=== PATIENT | female | born 1940 | race Caucasian/White ===

== ENCOUNTER 2016-09-01 08:53 | Inpatient (IN) | payer MEDICARE ==
[~2016-09-01] VITALS: Ht 144.7 cm; Wt 57.0 kg
[2016-09-01] VITALS (7 sets, daily range): BP systolic 120–143; BP diastolic 68–89
--- NOTE | ~2016-09-01 | PR ---
[place], [place] PROGRESS NOTE NAME: RACHANA MENON [facility] #: [id number] UNIT #: [id number] ROOM: 507 DOCTOR: LORI COX MD,JASPER BIRTHDATE: [birth year] DOS: 09/03/2016 PULMONARY PROGRESS NOTE SUBJECTIVE: The patient was seen and examined. Pulmonary followup note as well as covering for Dr. Shaye Guillen. The patient was seen and examined on 08/26/2016. She has been noted comfortable at this time with reduction of symptoms of shortness of breath, cough and wheezing was described. She was noted with some loose bowel motion for this patient in the last 12 hours. There was no abdominal pain. There was no hematemesis or melena. OBJECTIVE: VITAL SIGNS: Showed normal temperature, respiratory rate of 18, heart rate of 93, blood pressure 123/86. The pulse oxygen saturation on room air was 96% saturation recorded. HEENT: Examination shows no new change. NECK: Supple. CARDIOVASCULAR SYSTEM: S1, S2 audible. LUNGS: The patient was noted mild to moderate expiratory wheezing, decreased from previous examination. ABDOMEN: Soft, nontender. IMPRESSION: 1. Acute exacerbation of chronic obstructive pulmonary disease with acute tracheobronchitis for the patient noted. 2. Anxiety disorder. 3. Diarrhea of the patient unknown significance. PLAN OF TREATMENT: Reduce Solu-Medrol b.i.d. dosing. Stool for C. diff toxin has been ordered. Continuation of the previous other treatment plan of management. Usual care, other supportive therapy, plan of care. JASPER SANDOVAL MD CM:PNTRANS [phone] JASPER COX MD 09/04/16 0407 interface
--- NOTE | ~2016-09-01 | PR ---
[place], [place] PROGRESS NOTE NAME: [facility] #: [id number] UNIT #: [id number] ROOM: 507 DOCTOR: LORI COX MD,JASPER BIRTHDATE: [birth year] DOS: 09/04/2016 PULMONARY PROGRESS NOTE SUBJECTIVE: She has been noted with reduction in symptoms of shortness of breath, coughing, wheezing in the last 24 hours. Denies any symptoms of chest pain or any abdominal pain. The diarrhea of the patient has been better. OBJECTIVE: VITAL SIGNS: Normal temperature, respiratory rate 20, heart rate 84, blood pressure 146/70. Pulse oxygen saturation on room air 97% saturation. HEENT: Shows no new changes. NECK: Supple. CARDIOVASCULAR: S1, S2 audible. LUNGS: Mild expiratory wheezing, no crackles. ABDOMEN: Soft, nontender. LABORATORY DATA: The patient's sputum culture from the showed normal duglas on preliminary, final culture results are pending. Stool for C. diff toxin noted as negative. IMPRESSION: 1. The patient with resolving acute exacerbation of chronic obstructive pulmonary disease with acute tracheobronchitis progressively. 2. Diarrhea of the patient related to the food or medications administration without any evidence of Clostridium difficile. PLAN OF TREATMENT: Continue the current plan of management for this patient with corticosteroids, bronchodilators, and oxygen supplementation. The dose of Solu-Medrol for the patient been made to b.i.d. yesterday and will be made daily dosing from today. JASPER SANDOVAL MD CM:PNTRANS [phone] JASPER COX MD 09/05/16 0404 interface
--- NOTE | ~2016-09-01 | WRIGHTHP ---
[place], [place] PATIENT HISTORY AND PHYSICAL EXAM NAME: RACHANA MENON LOCATED WITHIN [facility] #: [id number] UNIT #: [id number] ROOM: 507 DOCTOR: BRITTANI MONTELONGO MD BIRTHDATE: [birth year] DOS: 09/02/2016 HISTORY OF PRESENT ILLNESS: The patient is 75 years old. The patient comes in with complaints of difficulty breathing. The patient has been sick for the last 3 weeks with increasing cough, shortness of breath and sputum production. She did not have any fever or chills. She has increasing shortness of breath, but no chest pains or palpitations, so she finally arrived to the emergency room and she was admitted with exacerbation of COPD. Chest x-ray was unremarkable. After admission, she continues to have a cough and continues to be in mild respiratory distress. PAST MEDICAL HISTORY: Significant for: 1. Last hospitalization in 02/2016, with acute exacerbation of COPD. 2. Benign pulmonary nodules. 3. Steroid-induced hyperglycemia. 4. History of nicotine abuse. 5. Generalized anxiety disorder. MEDICATIONS: That she is on are Symbicort 160 two puffs twice daily, Xanax 0.25 daily, vitamin D 2000 units daily, montelukast 10 daily, Protonix 40 daily, Spiriva 1 puff at bedtime and breathing treatments. SOCIAL HISTORY: Nonsmoker, does not use any alcohol. She lives at home with her son. PHYSICAL EXAMINATION: VITAL SIGNS: Graphic trend shows a blood pressure of 143/72, pulse of 98, respirations 20, temperature 98.0. LUNGS: Diminished breath sounds, very poor air entry. HEART: Regular. ABDOMEN: Soft. EXTREMITIES: Without any edema. LABORATORY DATA: WBC count is normal at 8.4, hemoglobin 13.9, hematocrit 44.3. Comprehensive, glucose 118, BUN 14, creatinine 0.73. Electrolytes were normal. Chest x-ray shows no pathology. ASSESSMENT AND PLAN: 1. The patient who presents with increasing shortness of breath and cough, has underlying acute tracheobronchitis. IV Rocephin has been ordered. Chest x-ray is unremarkable. 2. Acute exacerbation of COPD with acute respiratory distress syndrome. The patient is on IV steroids and breathing treatments. Maximize the bronchodilator regimen. Also add Hycodan for chronic cough. Dr. Quinteros also has been consulted. [place], [place] PATIENT HISTORY AND PHYSICAL EXAM NAME: RACHANA MENON UNIT #: [id number] ROOM: 507 DOCTOR: BRITTANI MONTELONGO MD BIRTHDATE: [birth year] BRITTANI MONTELONGO MD CM:HISPHYS:PATIENT HISTORY AND PHYSICAL EXAMINATION [phone] BRITTANI MONTELONGO MD 09/02/16 0855 interface
--- NOTE | ~2016-09-01 | CON ---
[place], [place] REPORT OF CONSULTATION NAME: RACHANA MENON [facility] #: [id number] UNIT #: [id number] ROOM: 507 DOCTOR: LORI COX MDJASPER BIRTHDATE: [birth year] DOS: 09/02/2016 PULMONARY CONSULTATION CONSULTATION REQUESTED BY: Dr. Shaye Guillen. REASON FOR CONSULTATION: Assess the patient for ongoing acute respiratory complaints. HISTORY OF PRESENT ILLNESS: A 75-year-old white female with past history of bronchial asthma, presented to the hospital. The patient has been noted getting increasingly ill with cough and shortness of breath. The symptoms for the patient has been started 3 weeks ago noted with gradual worsening. Coughing has been moderate to severe for the patient with only small amount of sputum expectoration recently was noted currently at rest, initially started for the patient with exertion. She denies symptoms of pain in the chest. She does complain of symptoms of tightness in the chest. The patient has been currently admitted to the hospital for further medical management of exacerbation of bronchial asthma/COPD. REVIEW OF SYSTEMS: CONSTITUTIONAL SYMPTOMS: She does complain of fatigue and tiredness. Denies symptoms of fever or chills. EYES: Denies any burning, redness, or tenderness. EARS, NOSE, THROAT SYMPTOMS: No sore throat, hoarseness, otalgia, or postnasal drainage. CARDIOVASCULAR SYSTEM: Denies anginal pain, edema of the lower extremities or palpitations. GASTROINTESTINAL SYMPTOMS: Denies any dysphagia, nausea, vomiting, diarrhea, abdominal pain, hematemesis, melena, or hematochezia. SKIN: Denies any lesions or rashes. CENTRAL NERVOUS SYSTEM: Denies dizziness, headache, diplopia or syncopal episodes. MUSCULOSKELETAL SYMPTOMS: There was no joint pain, redness, or tenderness. Remaining systems were reviewed with the patient, they were noted all negative. PAST MEDICAL HISTORY: Known as, 1. Centrilobular emphysema. 2. Bronchial asthma of the patient, severity unknown. 3. Past nicotine abuse. 4. History of gastroesophageal reflux. 5. Generalized anxiety disorder. SOCIAL HISTORY: The patient has been noted with tobacco use since teenager, pack of cigarettes per day that was discontinued in 2010. She is and has 4 children. Denies history of occupation related pulmonary exposure. Denies history of illicit drug use or any alcohol use. PAST SURGICAL HISTORY: Essentially noted none. [place], [place] REPORT OF CONSULTATION NAME: RACHANA MENON UNIT #: [id number] ROOM: 507 DOCTOR: LOIR COX MD,JASPER BIRTHDATE: [birth year] FAMILY HISTORY: Noted noncontributory. CURRENT MEDICATIONS: Administered noted as use of Protonix, Dulera, Singulair, DuoNeb, IV Solu-Medrol, Rocephin, and Xanax. ALLERGIES: Drug allergy history for the patient was noted as Z-LILLIAN. PHYSICAL EXAMINATION: GENERAL: A 75-year-old white female, currently noted to be awake and alert without any distress at the present time of assessment. The patient's height was recorded as 4 feet 9 inches, weight of 57 kg, BMI 27.2. VITAL SIGNS: Shows a normal temperature, respiratory recorded as 16-20, heart rate of 88. The blood pressure noted 131/69-142/72. Intake for the patient 910, output 300 mL. Pulse oxygen saturation on 3 L nasal cannula 99% saturation recorded. HEENT: Examination shows head was atraumatic. Eyes nonicterus. NECK: Supple, age-related changes. CARDIOVASCULAR SYSTEM: S1, S2 audible. LUNGS: Diffuse expiratory wheezing were noted in the lungs bilaterally. ABDOMEN: Flat, soft, nontender. EXTREMITIES: Show no edema, clubbing, or cyanosis. CENTRAL NERVOUS SYSTEM: Cranial nerves 2-12 intact. No focal deficits. MUSCULOSKELETAL SYMPTOMS: No deformities. SKIN: Showed no lesions or rashes. LABORATORY DATA: CBC of the patient on 09/01 shows hemoglobin 13.9, hematocrit 44.3, WBC count was normal, platelet count was normal. PT/PTT for the patient was noted as normal. CMP of the patient of 09/01, glucose 118, BUN and creatinine was normal. Remaining electrolytes were normal. LFTs were normal. Two-view chest x-ray for the patient that was done yesterday for the patient at the time of the admission, the patient was noted with hyperinflation of the lungs without any acute pulmonary infiltration. IMPRESSION: 1. The patient with gradual worsening of the symptoms for the patient as a result of acute exacerbation of chronic obstructive pulmonary disease and bronchial asthma for the patient with the acute bacterial bronchitis suspected. 2. The patient with past history of nicotine dependence. 3. Generalized anxiety disorder and history of gastroesophageal reflux, which were noted currently well controlled. PLAN OF TREATMENT: The patient has been getting corticosteroids 20 mg t.i.d. The dose will be changed for the patient 40 mg every 8 hours for more effective dose. Continuation of the bronchodilators and oxygen supplementation. Mucinex will be added to the treatment. Flutter valve for the patient also started as well. Further treatment changes will be done based on the progression of the illness. Collect the sputum for Gram stain and culture as well. No change in antibiotic, currently administered as Rocephin. Addition of antibiotic will be added as doxycycline for atypical organism coverage for bronchitis. [place], [place] REPORT OF CONSULTATION NAME: RACHANA MENON UNIT #: [id number] ROOM: [facility] DOCTOR: JASPER GARZA MD BIRTHDATE: [birth year] JASPER SANDOVAL MD CM:CONSTR:REPORT OF CONSULTATION 1017 09/03/16 0315 interface
--- NOTE | ~2016-09-01 | EKG ---
[place], [place] ELECTROCARDIOGRAM REPORT NAME: RACHANA MENON UNIT #: [id number] ROOM: 507 DOCTOR: RIKKI YOUNG MD BIRTHDATE: [birth year] DOS: 09/01/2016 TIME: 935 FINDINGS: Sinus tachycardia at rate of 116, otherwise normal electrocardiogram. RIKKI YOUNG MD CM:EKGRPT:ELECTROCARDIOGRAM REPORT [id number] RIKKI YOUNG MD
--- NOTE | ~2016-09-01 | PR ---
[place], [place] PROGRESS NOTE NAME: RACHANA MENON [facility] #: [id number] UNIT #: [id number] ROOM: 507 DOCTOR: BRITTANI MONTELONGO MD BIRTHDATE: [birth year] DOS: 09/04/2016 SUBJECTIVE: The patient is starting to feel better, does not have any complaints. Appreciate Dr. Quinteros's input. OBJECTIVE: VITAL SIGNS: Pressure is 119/59, pulse of 92, respirations 20, temperature 98.1. LUNGS: Diminished breath sounds, much clearer than when she was admitted. HEART: Regular. ABDOMEN: Obese, soft. EXTREMITIES: Without any edema. LABORATORY DATA: culture preliminary is normal duglas. C. diff toxin was negative. ASSESSMENT AND PLAN: 1. Acute exacerbation of chronic obstructive pulmonary disease. The patient is improving on the current treatment plan. 2. Acute tracheobronchitis. The cough has improved. The cultures are negative. 3. Generalized anxiety disorder on medications. The plan is to discharge her to home tomorrow. BRITTANI MONTELONGO MD CM:PNTRANS [phone] BRITTANI MONTELONGO MD 09/05/16 0038 interface
--- NOTE | ~2016-09-01 | PR ---
[place], [place] PROGRESS NOTE NAME: RACHANA MENON [facility] #: [id number] UNIT #: [id number] ROOM: 507 DOCTOR: BRITTANI MONTELONGO MD BIRTHDATE: [birth year] DOS: 09/05/2016 SUBJECTIVE: The patient is doing fine without any complaints today. OBJECTIVE: VITAL SIGNS: Graphic trend shows a pressure 128/69, pulse of 83, respirations 20, temperature 98.2. LUNGS: Diminished breath sounds, clear. HEART: Regular. ABDOMEN: Soft. EXTREMITIES: Without any edema. ASSESSMENT AND PLAN: 1. Acute exacerbation of chronic obstructive pulmonary disease, improving, bronchospasm has resolved. 2. Acute tracheobronchitis with negative sputum cultures. The patient is stable and can be discharged to home today. BRITTANI MONTELONGO MD CM:PNTRANS [phone] BRITTANI MONTELONGO MD 09/05/161924 interface
--- NOTE | ~2016-09-01 | DS ---
[place], [place] DISCHARGE SUMMARY NAME: RACHANA MENON [facility] #: [id number] UNIT #: [id number] ROOM: 507 DOCTOR: BRITTANI MONTELONGO MD BIRTHDATE: [birth year] DOS: 09/05/2016 DIAGNOSES: 1. Acute exacerbation of chronic obstructive pulmonary disease. 2. Acute tracheobronchitis. 3. Generalized anxiety disorder. 4. History of chronic asthma. 5. Benign pulmonary nodules. HOSPITAL COURSE: This patient is very well known to us, comes in with complaints of difficulty breathing, cough for about 3 weeks' duration. After admission, the patient was placed IV steroids and antibiotics and maximized the bronchodilators and she has slowly improved. Dr. Quinteros was consulted who agreed on the treatment plan. Chest x-ray was unremarkable. Her cough is mostly nonproductive and dry, so Hycodan was given. The patient is stable and improved and is no longer having any more bronchospasm, so the plan is to discharge her to home today. Follow up as an outpatient. BRITTANI MONTELONGO MD CM:DISCHLONNIE [phone] BRITTANI MONTELONGO MD 09/05/16 1505 interface
[~2016-09-01 08:53] MED LIST: ALBUTEROL SULF0.5 M1 NEB; ALBUTEROL2.5 MG/0.5 INH; CIPRO500 MG PO; CLARITIN10 MG PO; CORDROL20 MG PO; DELTASONE20 MG PO; DELTASONE5 MG; DELTASONE5 MG PO; DOXYCYCLINE100 M3 PO; DULE1ARO1 INH; DUONEB 3 MG/3 ML3 M1 INH; HYCODAN 1.5 MG480 M1 PO; NEXIUM40 MG PO; PERCOCET 325 MG1 TA6 PO; PREDNICOT20 MG PO; PREDNISONE20 MG PO; PREDNISONE5 MG PO; PRILOSEC20 MG PO; PULMICORT RESP0.5 MG INH; SINGULAIR10 MG PO; SPIRIVA -- 3018 MCG; SYMBICORT1 AE1 INH; SYMBICORT1 AER IH; VIBRAMYCIN100 MG PO; VICODIN 5/500 505 MG PO; VICODIN 500 MG-1 TAB PO; VITAMIN B1100 MCG/ML IM; VITAMIN D32000 I1 PO; VITAMIN D50000 I2 PO; XANAX0.25 MG PO; ZAFIRLUKAST20 M2 PO; ZITHROMAX250 MG PO; ZOVIRAX800 MG PO
[2016-09-01] MEDS ORDERED: ALBUTEROL2.5 MG/0.5 INH (09:04)
[2016-09-01] MEDS ORDERED: MONTELUKAST SOD10 MG PO (09:05)
[2016-09-01] MEDS ORDERED: VITAMIN D-32000 UNI1 PO (09:05)
[2016-09-01] MEDS ORDERED: XANAX0.25 MG PO (09:06)
[2016-09-01] MEDS ORDERED: PROTONIX40 MG PO (09:07)
[2016-09-01 09:39] LABS: BASO # 0.1 10*3/uL (0.0-0.1); BASO % 1.1 % (0.0-1.0); EOS # 0.3 10*3/uL (0.0-0.4); EOS % 3.7 % (1.0-4.0); HEMATOCRIT 44.3 % (37.0-47.0); HEMOGLOBIN 13.9 g/dl (12.0-16.0); LYMPH # 1.7 10*3/uL (1.3-4.4); LYMPH % 20.5 % (27.0-41.0); MEAN CELL VOLUME 79.7 fl (81.0-99.0); MEAN CORPUSCULAR HGB CONC 31.4 g/dl (33.0-37.0); MEAN PLATELET VOLUME 9.5 fl (9.6-12.3); MONO # 0.8 10*3/uL (0.1-1.0); MONO % 9.4 % (3.0-9.0); NEUT # 5.5 10*3/uL (2.3-7.9); NEUT % 64.9 % (47.0-73.0); PLATELET COUNT AUTOMATED 348 10*3/uL (130-400); RED BLOOD COUNT 5.56 10*6/uL (4.10-5.10); RED CELL DISTRI WIDTH 16.2 % (0-14.5); WHITE BLOOD COUNT 8.4 10*3/uL (4.8-10.8)
[2016-09-01 10:02] LABS: INTERNATIONAL NORM RATIO 0.9 (2.0-3.5); PROTHROMBIN TIME 9.9 SECONDS (9.0-12.4)
[2016-09-01 10:09] LABS: ALBUMIN 3.9 gm/dl (3.1-4.5); ALKALINE PHOSPHATASE 65 U/L (45-117); BILIRUBIN, TOTAL 0.3 mg/dl (0.2-1.0); BUN 14 mg/dl (7-24); CARBON DIOXIDE 27 mmol/L (21-32); CHLORIDE 108 mmol/L (98-107); CKMB 2.3 ng/ml (0.5-3.6); CPK 66 U/L (26-192); EST GLOM FILT AFRICAN AMERICAN > 60 ml/min; GLUCOSE 118 mg/dL (65-99); MAGNESIUM 2.2 mg/dL (1.5-2.1); SGOT/AST 16 IU/L (3-35); SGPT/ALT 19 U/L (12-78); SODIUM 142 mmol/L (136-145); TOTAL PROTEIN 7.1 gm/dL (6.4-8.2)
[2016-09-01 10:13] LABS: C-REACTIVE PROTEIN < 0.29 MG/DL (0-0.3); TROPONIN I < 0.015 ng/ml (<0.045)
[2016-09-02] VITALS: BP 143/72
[2016-09-02 08:00] VITALS: BP 131/69
[2016-09-02 12:00] VITALS: BP 130/69
[2016-09-02 16:00] VITALS: BP 157/70
[2016-09-02 20:00] VITALS: BP 137/79
[2016-09-03] VITALS: BP 127/62
[2016-09-03 08:00] VITALS: BP 123/86
[2016-09-03 12:00] VITALS: BP 140/89
[2016-09-03 16:00] VITALS: BP 125/52
[2016-09-03 20:00] VITALS: BP 154/68
[2016-09-04] VITALS: BP 119/59
[2016-09-04 08:00] VITALS: BP 118/72
[2016-09-04 12:00] VITALS: BP 146/70
[2016-09-04 16:00] VITALS: BP 137/70
[2016-09-04 20:00] VITALS: BP 137/70
[2016-09-05] VITALS: BP 128/69
[2016-09-05] MEDS ORDERED: DOXYCYCLINE MO100 M1 PO (06:52)
[2016-09-05] MEDS ORDERED: HYCODAN/HYDROMET5 ML PO (06:52)
[2016-09-05] MEDS ORDERED: SYMBICORT1 AE1 INH (06:52)
[2016-09-05] MEDS ORDERED: PREDNISONE5 MG PO ×2 (06:53→06:55)
[2016-09-05 08:00] VITALS: BP 148/72
== END 2016-09-05 09:07 | disposition home or self-care (01) | DRG 191 ==
LOC: ED 08:53 → 5E 11:08 → EDHOLD 11:08 → 5E 12:13
PROVIDERS: Registered Nurse
DX: J44.0 Chronic obstructive pulmonary disease with (acute) lower respiratory infection (principal); J80 Acute respiratory distress syndrome; J44.1 Chronic obstructive pulmonary disease with (acute) exacerbation; J20.9 Acute bronchitis, unspecified; R91.1 Solitary pulmonary nodule; F41.1 Generalized anxiety disorder; R19.7 Diarrhea, unspecified; K21.9 Gastro-esophageal reflux disease without esophagitis; Z87.891 Personal history of nicotine dependence; Z98.51 Tubal ligation status

== ENCOUNTER 2018-05-04 06:01 | Inpatient (IN) | payer MEDICARE ==
[~2018-05-04] VITALS: Ht 144.7 cm; Wt 59.0 kg
--- NOTE | ~2018-05-04 | EKG ---
[place], [place] ELECTROCARDIOGRAM REPORT NAME: RACHANA MENON UNIT #: [id number] ROOM: 515 DOCTOR: NHUNG DRAFT REPORT BIRTHDATE: [birth year] [facility] Test Date: 2018-05-04 Test Time: 11:19:09 Pat Name: RACHANA MENON Department: Room: [facility] Gender: F Monorail Hooker: EKG.MS : 1940 Requested By: COLEEN MEDINA Order Number: [id number] Reading MD: Amelia Medley MD Measurements Intervals [place] Rate: 80 P: 47 LA: 169 QRS: 7 QRSD: 81 T: 48 QT: 356 QTc: 411 Interpretive Statements Sinus rhythm Electronically Signed On 05-05-2018 10:47:54 PST by Amelia Medley MD CM:EKGRPT:ELECTROCARDIOGRAM REPORT [id number] COLEEN RICHARD DRAFT REPORT COLEEN MEDINA DO
[~2018-05-04 06:01] MED LIST changes: +DOXYCYCLINE MO100 M1 PO; +HYCODAN/HYDROMET5 ML PO; +MONTELUKAST SOD10 MG PO; +PROTONIX40 MG PO; +VITAMIN D-32000 UNI1 PO
[2018-05-04 06:05] VITALS: BP 190/91
[2018-05-04] MEDS ORDERED: ZOCOR20 MG PO (06:06)
[2018-05-04] MEDS ORDERED: METOPROLOL SUCC25 M2 PO (06:07)
[2018-05-04 06:38] LABS: BASO # 0.1 10*3/uL (0.0-0.1); BASO % 0.9 % (0.0-1.0); EOS # 0.4 10*3/uL (0.0-0.4); EOS % 4.8 % (1.0-4.0); HEMATOCRIT 43.4 % (37.0-47.0); HEMOGLOBIN 13.6 g/dl (12.0-16.0); LYMPH # 1.4 10*3/uL (1.3-4.4); LYMPH % 18.9 % (27.0-41.0); MEAN CORPUSCULAR HGB 25.7 pg (27.0-31.0); MEAN CORPUSCULAR HGB CONC 31.3 g/dl (33.0-37.0); MEAN PLATELET VOLUME 9.1 fl (9.6-12.3); MONO # 0.7 10*3/uL (0.1-1.0); MONO % 9.4 % (3.0-9.0); NEUT % 65.7 % (47.0-73.0); PLATELET COUNT AUTOMATED 342 10*3/uL (130-400); RED BLOOD COUNT 5.29 10*6/uL (4.10-5.10); RED CELL DISTRI WIDTH 15.4 % (0-14.5); WHITE BLOOD COUNT 7.6 10*3/uL (4.8-10.8)
[2018-05-04 06:54] LABS: BILIRUBIN NEGATIVE (NEGATIVE); BLOOD NEGATIVE (NEGATIVE); CLARITY SL CLOUDY (CLEAR); COLOR YELLOW (YELLOW); GLUCOSE NEGATIVE (NEGATIVE); KETONE NEGATIVE (NEGATIVE); LEUKO ESTERASE NEGATIVE (NEGATIVE); NITRITE NEGATIVE (NEGATIVE); UROBILINOGEN 0.2 E.U./dl (0.2-1.0)
[2018-05-04 06:56] LABS: ALBUMIN 3.5 gm/dl (3.1-4.5); ALKALINE PHOSPHATASE 71 U/L (45-117); BUN 10 mg/dl (7-24); CHLORIDE 105 mmol/L (98-107); CREATININE 0.68 mg/dL (0.55-1.02); POTASSIUM 3.9 mmol/L (3.5-5.1); SGOT/AST 18 IU/L (3-35); SGPT/ALT 25 U/L (12-78); SODIUM 139 mmol/L (136-145); TOTAL PROTEIN 7.1 gm/dL (6.4-8.2)
[2018-05-04 07:09] LABS: BACTERIA 4+
[2018-05-04 08:01] VITALS: BP 173/86
--- NOTE | 2018-05-04 11:01 | NUR ---
SPOKE WITH NUCLEAR MED. THEY ARE UNABLE TO PERFORM LUNG SCAN UNTIL CLOSER TO 2PM. DR MEDINA HAS BEEN MADE AWARE OF THIS.
--- NOTE | 2018-05-04 12:55 | NUR ---
CONTINUES TO C/O PAIN. DR MEDINA HAS BEEN MADE AWARE OF THIS.
--- NOTE | 2018-05-04 14:03 | NUR ---
NUCLEAR MED WILL BE HERE FOR PT IN ABOUT 10 MINUTES.
[2018-05-04 15:32] VITALS: BP 113/49; BP 140/76; BP 184/91
--- NOTE | 2018-05-04 16:10 | NUR ---
PT SITTING AT BEDSIDE NO DISTRESS NOT3ED CALL LIGHT IN REACH FAMILY IN ROOM
[2018-05-04 16:34] LABS: ACT PARTIAL THROMBO TIME 24.5 SECONDS (20.8-31.5); INTERNATIONAL NORM RATIO 0.9 (2.0-3.5)
--- NOTE | 2018-05-04 16:55 | NUR ---
A 77, admitted to 5E, under the services of BORIS Donis DO with a diagnosis of PULMONARY EMBOLISM. Chief complaint is INTERMITTENT CHEST PAIN 2 WEEKS. Patient arrived via bed from ER. Monitor applied. Initial assessment completed. Vital signs taken and recorded. BORIS DONIS DO notified of admission to the unit. Orders received. See assessment for past medical history, medications and allergies. Patient and/or family oriented to unit. [address] visitation policy reviewed. Clothing/patient valuable form completed. SKIN INTACT WITH NO WOUNDS. PER PT FLU AND PNEUMONIA VACCINATIONS CURRENT. LUCERO BIANCHI
--- NOTE | 2018-05-04 17:07 | NUR ---
IV HEPARIN STILL INFUSING WHEN PT WAS TAKEN TO FLOOR
[2018-05-04 20:00] VITALS: BP 115/53
--- NOTE | 2018-05-04 20:07 | NUR ---
CALLED DR CISSE AND EXPLAINED THAT PT WANTS TO USE SYMBICORT INHALER FROM HOME. VERBAL ORDER RECEIVED FOR USE OF SYMBICORT FROM HOME. SENT MED TO PHARMACY.
[2018-05-05] VITALS: BP 121/65
[2018-05-05 05:59] LABS: BASO # 0.1 10*3/uL (0.0-0.1); BASO % 0.9 % (0.0-1.0); EOS # 0.2 10*3/uL (0.0-0.4); EOS % 3.1 % (1.0-4.0); HEMATOCRIT 38.6 % (37.0-47.0); HEMOGLOBIN 11.9 g/dl (12.0-16.0); LYMPH % 25.9 % (27.0-41.0); MEAN CELL VOLUME 83.4 fl (81.0-99.0); MEAN CORPUSCULAR HGB 25.7 pg (27.0-31.0); MEAN CORPUSCULAR HGB CONC 30.8 g/dl (33.0-37.0); MEAN PLATELET VOLUME 9.6 fl (9.6-12.3); MONO # 0.9 10*3/uL (0.1-1.0); MONO % 11.1 % (3.0-9.0); NEUT # 4.5 10*3/uL (2.3-7.9); NEUT % 58.6 % (47.0-73.0); PLATELET COUNT AUTOMATED 290 10*3/uL (130-400); RED BLOOD COUNT 4.63 10*6/uL (4.10-5.10); RED CELL DISTRI WIDTH 15.7 % (0-14.5); WHITE BLOOD COUNT 7.7 10*3/uL (4.8-10.8)
[2018-05-05 06:07] LABS: ALBUMIN 3.1 gm/dl (3.1-4.5); ALKALINE PHOSPHATASE 62 U/L (45-117); BUN 13 mg/dl (7-24); CHLORIDE 108 mmol/L (98-107); CHOLESTEROL 159 mg/dL (<200); CREATININE 0.66 mg/dL (0.55-1.02); HDL CHOLESTEROL 74 mg/dl (40-60); LDL CHOLESTEROL 72 mg/dL (9-159); PHOSPHOROUS 3.3 mg/dL (2.5-4.9); POTASSIUM 3.7 mmol/L (3.5-5.1); SGOT/AST 14 IU/L (3-35); SGPT/ALT 20 U/L (12-78); SODIUM 145 mmol/L (136-145); TOTAL PROTEIN 6.1 gm/dL (6.4-8.2); TRIGLYCERIDES 65 mg/dl (<150); VLDL CHOLESTEROL 13 mg/dL (6-40)
[2018-05-05 06:09] LABS: FREE T4 1.15 ng/dl (0.76-1.46)
[2018-05-05 08:00] VITALS: BP 136/62
[2018-05-05 08:03] LABS: VITAMIN D, 25-HYDROXY 36.5 ng/mL (30-100)
--- NOTE | 2018-05-05 08:24 | NUR ---
PT MEDICATED WITH NORCO AT THIS TIME PER ORDER FOR COMPLAINTS OF BACK PAIN 11/15. WILL MONITOR FOR EFFECTIVENESS.
--- NOTE | 2018-05-05 09:45 | NUR ---
PER PATIENT, PRN MEDICATION HAS BEEN EFFECTIVE. NO FURTHER COMPLAINTS AT THIS TIME.
--- NOTE | 2018-05-05 11:35 | NUR ---
Slabber Light in to talk to patient. Patient states lives at HOME with SON. There are BASEMENT steps in the home. Physician: JAYDA Pharmacy: [facility] health services: NONE Patient's level of ADLs: INDEPENDENT Patient has working utilities: YES DME: NONE Follow-up physician's appointment after d/c: WILL BE MADE BY HOSPITALIST NURSE DIRECTOR ON DISCHARGE Does patient want to access PORTAL?: NO Discharge plan PT LIVES AT HOME WITH SON AND IS INDEPENDENT IN HER CARE. STATES SHE HAS NO NEEDS ON DISCHARGE. WILL CONTINUE TO FOLLOW.. ROSA MARIA BERGER
[2018-05-05 12:00] VITALS: BP 145/76
--- NOTE | 2018-05-05 13:58 | NUR ---
aPTT THERAPEUTIC AT THIS TIME; REPEAT ORDER FOR TOMORROW MORNING. NO CHANGES NEEDED.
[2018-05-05] MEDS ORDERED: NORCO 5-325 TA1 EACH PO (15:29)
[2018-05-05] MEDS ORDERED: FAMCICLOVIR500 MG PO (15:29)
--- NOTE | 2018-05-05 16:44 | NUR ---
Discharge instructions reviewed with patient/family. Patient receptive and verbalizes understanding. Follow-up care arranged. Written instructions given to patient/family. [place] DISCONTINUED. NORCO SCRIPT SENT TO PHARMACY TO FILL. PATIENT PICKE DUP BY SON AND AMBULATORY OFF FLOOR. ERIK GUERRA
== END 2018-05-05 16:44 | disposition home or self-care (01) | DRG 693 ==
LOC: ED 06:01 → EDHOLD 15:56 → 5E 15:56
PROVIDERS: Emergency Medicine; Student in an Organized Health Care Education/Training Program; ADMIT Internal Medicine
DX: N20.0 Calculus of kidney (principal); I26.99 Other pulmonary embolism without acute cor pulmonale; J44.1 Chronic obstructive pulmonary disease with (acute) exacerbation; I10 Essential (primary) hypertension; R73.9 Hyperglycemia, unspecified; F41.1 Generalized anxiety disorder; B02.9 Zoster without complications; E53.8 Deficiency of other specified B group vitamins; E83.41 Hypermagnesemia; K57.30 Diverticulosis of large intestine without perforation or abscess without bleeding; Z88.1 Allergy status to other antibiotic agents; Z91.048 Other nonmedicinal substance allergy status; Z98.51 Tubal ligation status; Z87.891 Personal history of nicotine dependence; Z80.9 Family history of malignant neoplasm, unspecified; Z82.5 Family history of asthma and other chronic lower respiratory diseases; Z79.899 Other long term (current) drug therapy

== ENCOUNTER 2018-06-01 16:09 | Emergency (ER) | payer MEDICARE ==
[~2018-06-01] VITALS: Ht 144.7 cm; Wt 57.6 kg
[2018-06-01 16:09] VITALS: BP 173/83
[~2018-06-01 16:09] MED LIST changes: +FAMCICLOVIR500 MG PO; +METOPROLOL SUCC25 M2 PO; +NORCO 5-325 TA1 EACH PO; +ZOCOR20 MG PO
== END 2018-06-01 17:49 | disposition home or self-care (01) ==
LOC: ED 16:09
DX: S82.141A Displaced bicondylar fracture of right tibia, initial encounter for closed fracture (principal); J45.909 Unspecified asthma, uncomplicated; I10 Essential (primary) hypertension; Z98.890 Other specified postprocedural states; Z98.51 Tubal ligation status; Z87.891 Personal history of nicotine dependence; Z79.899 Other long term (current) drug therapy; Z88.1 Allergy status to other antibiotic agents; X58.XXXA Exposure to other specified factors, initial encounter; Y93.89 Activity, other specified; Y92.89 Other specified places as the place of occurrence of the external cause; Y99.9 Unspecified external cause status

== ENCOUNTER 2019-01-29 18:33 | Inpatient (IN) | payer MEDICARE ==
[~2019-01-29] VITALS: Ht 139.7 cm; Wt 57.6 kg
[2019-01-29 18:48] LABS: BASO # 0.1 10*3/uL (0.0-0.1); BASO % 0.9 % (0.0-1.0); EOS # 0.2 10*3/uL (0.0-0.4); EOS % 2.6 % (1.0-4.0); HEMATOCRIT 41.7 % (37.0-47.0); HEMOGLOBIN 12.8 g/dl (12.0-16.0); LYMPH % 22.9 % (27.0-41.0); MEAN CELL VOLUME 83.9 fl (81.0-99.0); MEAN CORPUSCULAR HGB 25.8 pg (27.0-31.0); MEAN CORPUSCULAR HGB CONC 30.7 g/dl (33.0-37.0); MEAN PLATELET VOLUME 9.4 fl (9.6-12.3); MONO % 11.8 % (3.0-9.0); NEUT # 5.4 10*3/uL (2.3-7.9); NEUT % 61.6 % (47.0-73.0); PLATELET COUNT AUTOMATED 338 10*3/uL (130-400); RED BLOOD COUNT 4.97 10*6/uL (4.10-5.10); RED CELL DISTRI WIDTH 14.8 % (0-14.5); WHITE BLOOD COUNT 8.8 10*3/uL (4.8-10.8)
[2019-01-29 18:59] LABS: ACT PARTIAL THROMBO TIME 25.1 SECONDS (20.0-32.1); INTERNATIONAL NORM RATIO 0.9 (2.0-3.5)
[2019-01-29 19:08] LABS: ALBUMIN 3.4 gm/dl (3.1-4.5); ALKALINE PHOSPHATASE 78 U/L (45-117); BUN 12 mg/dl (7-24); CHLORIDE 108 mmol/L (98-107); CREATININE 0.77 mg/dL (0.55-1.02); POTASSIUM 3.7 mmol/L (3.5-5.1); SGOT/AST 15 IU/L (3-35); SGPT/ALT 19 U/L (12-78); SODIUM 141 mmol/L (136-145); TOTAL PROTEIN 6.9 gm/dL (6.4-8.2)
[2019-01-29 19:11] LABS: TROPONIN I < 0.015 ng/ml (<0.045)
--- NOTE | 2019-01-29 20:00 | NUR ---
PT STATES SHE FEELS SO MUCH BETTER AT THIS TIME. CHEYENNE PELAEZ RN.
[2019-01-29 20:37] LABS: ABG BASE EXCESS 2.5 mmol/L (-2.0-2.0); ABG HCO3 27.4 mmol/l (22-26); ABG O2 SATURATION 83.5 % (95-97); ARTERIAL BLOOD GAS PCO2 45.6 mmHg (35-45); ARTERIAL BLOOD GAS PH 7.395 (7.35-7.45); ARTERIAL BLOOD GAS PO2 50.6 mmHg (80-90)
[2019-01-29 21:23] VITALS: BP 132/70
--- NOTE | 2019-01-29 21:39 | NUR ---
A 78, admitted to , under the services of BRITTANI Mcwilliams MD with a diagnosis of COPD. Chief complaint is SHORTNESS OF BREATH. Patient arrived via stretcher from ER. Monitor applied. Initial assessment completed. Vital signs taken and recorded. BRITTANI MCWILLIAMS MD notified of admission to the unit. Orders received. See assessment for past medical history, medications and allergies. Patient and/or family oriented to unit. [facility]. Clothing/patient valuable form completed. KEL LARA
[2019-01-29 21:40] VITALS: BP 170/82
[2019-01-29] MEDS ORDERED: VITAMIN D31000 UNI1 PO (21:54)
--- NOTE | 2019-01-29 21:54 | NUR ---
MED REC COMPLETED WITH A LIST FROM HOME.
--- NOTE | 2019-01-29 22:05 | NUR ---
PATIENT STATES THAT SHE WANTS HER CODE STATUS TO BE A COMFORT CARE. THIS RN REVIEWED WHAT COMFORT CARE MEANS WITH THE PATIENT. PATIENT VERBALIZED UNDERSTANDING AND STATES THAT SHE DOES NOT WANT ANYTHING DONE IN THE EVENT OF AN EMERGENCY.
[2019-01-30] VITALS: BP 166/86
[2019-01-30 08:00] VITALS: BP 128/82
--- NOTE | 2019-01-30 09:00 | NUR ---
Assortment Planner in to talk to patient. Patient states lives at home with his son. There are basement steps in the home. Physician: Dr. Shaye Guillen Pharmacy: [facility] Home health services: none Patient's level of ADLs: MINIMAL ASSIST Patient has working utilities: yes DME: cane, walker Follow-up physician's appointment after d/c: she prefers to make her own follow up appt after discharge Does patient want to access PORTAL?: no Discharge plan discussed with patient. She lives at home with her son. She is independent in her ADLs and ambulation. She does have a walker and a cane from previously but currently does not need to use them. Discussed home health care services and she denies any home needs. When medically stable she will be discharged to home. One of her sons will provide transportation on discharge. She states "It just depends on which one will be available." MADELINE GARCIA
--- NOTE | 2019-01-30 09:58 | NUR ---
RESP THERAPIST TRIED TO PUT PT ON BIPAP SHE COULD NOT DO IT SHE STATED THAT SHE IS CLOSETERPHOBIC. SHE COULD NOT TOLERATE IT. RN NOTIFIED.
[2019-01-30 12:00] VITALS: BP 135/71
--- NOTE | 2019-01-30 13:49 | NUR ---
MEDICATED WITH MOTRIN FOR COMPLAINTS OF HEADACHE. WILL MONITOR FOR EFFECTIVENESS.
--- NOTE | 2019-01-30 15:12 | NUR ---
PT RESTING, STATES EARLIER MOTRIN HELPED WITH HEADACHE.
--- NOTE | 2019-01-30 15:40 | NUR ---
PT STILL REFUSING BIPAP AT THIS TIME
[2019-01-30 16:00] VITALS: BP 118/63
[2019-01-30 20:00] VITALS: BP 125/72
--- NOTE | 2019-01-30 21:30 | NUR ---
PATIENT REFUSING BIPAP AT THIS TIME
[2019-01-31] VITALS: BP 119/59
--- NOTE | 2019-01-31 00:41 | NUR ---
01/30/19 23;30 PT REFUSING TO WEAR BiPAP OVERNIGHT.
[2019-01-31 08:00] VITALS: BP 126/70
--- NOTE | 2019-01-31 09:00 | NUR ---
Logistics Engineering Manager in to see patient. She is laying in bed watching TV. No new needs or request at this time. She denies any home needs. She states she feels better today than yesterday. When medically stable she will be discharged to home.
--- NOTE | 2019-01-31 09:32 | NUR ---
PT COMPLAINS OF PERSISTENT HEADACHE, MEDICATED WITH MOTRIN. WILL MONITOR FOR EFFECTIVENESS.
--- NOTE | 2019-01-31 11:00 | NUR ---
PT RESTING IN BED, STATES MOTRIN HELPED WITH HEADACHE, STATES ONLY A DULL ACHE AT THIS TIME.
[2019-01-31 12:00] VITALS: BP 134/64
[2019-01-31 16:00] VITALS: BP 132/70
--- NOTE | 2019-01-31 17:21 | NUR ---
PT RESTING IN BED, NO DISTRESS NOTED. CALL LIGHT WITHIN REACH.
--- NOTE | 2019-01-31 19:10 | NUR ---
BEDISDE REPORT RECEIVED FROM DAYLIGHT NURSE. PT IS AWAKE ALERT AND ORIENTED. RESPIRATIONS ARE EASY AND UNLABORED. PT VOICES NO CONCERNS AT THIS TIME. CALL LIGHT IN REACH.
[2019-01-31 20:00] VITALS: BP 135/65
[2019-02-01] VITALS: BP 124/56
--- NOTE | 2019-02-01 01:00 | NUR ---
PT SLEEPING AT THIS TIME. CALL LIGHT IN REACH.
--- NOTE | 2019-02-01 03:00 | NUR ---
PT IS SLEEPING AT THIS TIME. NO DISRESS NOTED, RESPIRATIONS EASY AND UNLABORED. CALL LIGHT IN REACH.
--- NOTE | 2019-02-01 07:36 | NUR ---
24 HR chart check completed.
[2019-02-01 08:00] VITALS: BP 142/80
--- NOTE | 2019-02-01 09:00 | NUR ---
Site Leader in to see patient. No new needs or request at this time. She denies any home needs. When medically stable she will be discharged to home.
--- NOTE | 2019-02-01 09:28 | NUR ---
DR MONTELONGO INTO ASSESS PT. ORDERS RECIEVED AND CARRIED OUT. PT HAS NO C/O ANY AT THIS TIME EXCEPT FOR WANTING TO GO HOME.
[2019-02-01 16:00] VITALS: BP 142/69
[2019-02-01 20:00] VITALS: BP 150/73
[2019-02-02] VITALS: BP 172/85
[2019-02-02 08:00] VITALS: BP 150/74
[2019-02-02] MEDS ORDERED: CEFUROXIME AXE250 MG PO (08:32)
[2019-02-02] MEDS ORDERED: PREDNISONE5 MG PO (08:32)
[2019-02-02] MEDS ORDERED: MIRTAZAPINE15 M2 PO (08:33)
[2019-02-02] MEDS ORDERED: PROTONIX40 MG PO (08:34)
--- NOTE | 2019-02-02 10:20 | NUR ---
MSDIS Discharge instructions reviewed with patient/family. Patient receptive and verbalizes understanding. Follow-up care arranged. Written instructions given to patient/family. FARIBA PEREZ
== END 2019-02-02 10:20 | disposition home or self-care (01) | DRG 189 ==
LOC: ED 18:33 → EDHOLD 20:41 → 4E 20:41
PROVIDERS: Emergency Medicine; Nurse Practitioner; ADMIT Internal Medicine
PROC: 5A09357 Assistance with Respiratory Ventilation, Less than 24 Consecutive Hours, Continuous Positive Airway Pressure (ICD-10-PCS; principal; 2019-01-30)
DX: J96.21 Acute and chronic respiratory failure with hypoxia (principal); J44.1 Chronic obstructive pulmonary disease with (acute) exacerbation; F32.1 Major depressive disorder, single episode, moderate; J44.0 Chronic obstructive pulmonary disease with (acute) lower respiratory infection; J20.9 Acute bronchitis, unspecified; F41.1 Generalized anxiety disorder; I10 Essential (primary) hypertension; Z88.1 Allergy status to other antibiotic agents; Z91.09 Other allergy status, other than to drugs and biological substances; Z98.51 Tubal ligation status; Z87.891 Personal history of nicotine dependence; Z82.5 Family history of asthma and other chronic lower respiratory diseases; Z80.8 Family history of malignant neoplasm of other organs or systems

== ENCOUNTER 2019-07-15 19:58 | Inpatient (IN) | payer MEDICARE ==
[~2019-07-15] VITALS: Ht 144.8 cm; Wt 61.3 kg
[~2019-07-15 19:58] MED LIST changes: +CEFUROXIME AXE250 MG PO; +MIRTAZAPINE15 M2 PO; +VITAMIN D31000 UNI1 PO
[2019-07-15 20:08] VITALS: BP 118/64
[2019-07-15 20:26] LABS: BASO # 0.1 10*3/uL (0.0-0.1); BASO % 0.5 % (0.0-1.0); EOS # 0.1 10*3/uL (0.0-0.4); EOS % 0.7 % (1.0-4.0); HEMATOCRIT 46.4 % (37.0-47.0); HEMOGLOBIN 14.4 g/dl (12.0-16.0); LYMPH # 2.2 10*3/uL (1.3-4.4); MEAN CELL VOLUME 81.3 fl (81.0-99.0); MEAN CORPUSCULAR HGB 25.2 pg (27.0-31.0); MEAN PLATELET VOLUME 8.9 fl (9.6-12.3); MONO # 1.2 10*3/uL (0.1-1.0); MONO % 9.9 % (3.0-9.0); NEUT # 8.8 10*3/uL (2.3-7.9); NEUT % 70.5 % (47.0-73.0); PLATELET COUNT AUTOMATED 356 10*3/uL (130-400); RED BLOOD COUNT 5.71 10*6/uL (4.10-5.10); RED CELL DISTRI WIDTH 16.5 % (0-14.5); WHITE BLOOD COUNT 12.5 10*3/uL (4.8-10.8)
[2019-07-15 20:35] LABS: ACT PARTIAL THROMBO TIME 25.4 SECONDS (20.0-32.1); INTERNATIONAL NORM RATIO 0.9 (2.0-3.5)
[2019-07-15 20:47] LABS: ALBUMIN 3.2 gm/dl (3.1-4.5); ALKALINE PHOSPHATASE 77 U/L (45-117); BUN 12 mg/dl (7-24); CHLORIDE 106 mmol/L (98-107); CREATININE 0.92 mg/dL (0.55-1.02); POTASSIUM 3.9 mmol/L (3.5-5.1); SGOT/AST 14 IU/L (3-35); SGPT/ALT 26 U/L (12-78); SODIUM 139 mmol/L (136-145); TOTAL PROTEIN 6.6 gm/dL (6.4-8.2)
[2019-07-15 20:49] LABS: TROPONIN I < 0.015 ng/ml (<0.045)
--- NOTE | 2019-07-15 22:11 | NUR ---
WALKED PT ON ROOM AIR 93% with increased respirations.
[2019-07-16] VITALS: BP 160/81
--- NOTE | 2019-07-16 | NUR ---
A 78, admitted to 5E, under the services of Dr. MERY GROSS,HARRITET Stover with a diagnosis of COPD EXACERBATION. Chief complaint is SHORTNESS OF BREATH. Patient arrived via ambulatory from ER. Monitor applied. Initial assessment completed. Vital signs taken and recorded. DR. MERY GROSS,HARRIETT Stover notified of admission to the unit. Orders received. See assessment for past medical history, medications and allergies. Patient and/or family oriented to unit. visitation policy reviewed. Clothing/patient valuable form completed. MELODY FREITAS
[2019-07-16] MEDS ORDERED: PREDNISONE2.5 MG PO (00:09)
--- NOTE | 2019-07-16 00:20 | NUR ---
DR. ORDONEZ NOTIFIED OF ADMISSION TO FLOOR AND WENT OVER HOME MEDICATIONS AND ORDERS.
--- NOTE | 2019-07-16 09:00 | NUR ---
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 Patient states lives at home with her son. There are basement steps in the home. Physician: Dr. Shaye Guillen Pharmacy: [facility] Home health services: none Patient's level of ADLs: independent Patient has working utilities: yes DME: cane, walker Follow-up physician's appointment after d/c: she prefers to make her own follow up appt after discharge Does patient want to access PORTAL?: no Discharge plan discussed with patient. She lives at home with her son. She is independent in her ADLs and ambulation. She does have a walker and a cane from previously but currently does not need to use them. Discussed home health care services and she denies any home needs. When medically stable she will be discharged to home. She states her son, Todd, will provide transportation on discharge as long as he is available. It will probably be after 3pm when he gets off from work. MADELINE GARCIA
[2019-07-16 12:00] VITALS: BP 120/70
[2019-07-16 16:00] VITALS: BP 126/72
[2019-07-16 20:00] VITALS: BP 132/59
[2019-07-17] VITALS: BP 122/72
--- NOTE | 2019-07-17 02:16 | NUR ---
PATIENT MEDICATED WITH TORADOL X1 FOR CHEST PAIN/DISCOMFORT. WILL CONTINUE TO MONITOR. CALL LIGHT IN REACH.
[2019-07-17 08:00] VITALS: BP 121/67
--- NOTE | 2019-07-17 09:30 | NUR ---
Halal Butcher in to see patient. No new needs or request at this time. She denies any home needs. When medically stable she will be discharged to home.
[2019-07-17 12:00] VITALS: BP 123/64
[2019-07-17 16:00] VITALS: BP 136/68
[2019-07-17 20:00] VITALS: BP 155/76
[2019-07-18] VITALS: BP 120/91
[2019-07-18 08:00] VITALS: BP 129/68
[2019-07-18] MEDS ORDERED: CEFUROXIME AXE250 MG PO (08:24)
[2019-07-18] MEDS ORDERED: PREDNISONE5 MG PO (08:24)
--- NOTE | 2019-07-18 09:40 | NUR ---
PATIENT TO BE DISCHARGE TO HOME ONCE SON GETS HERE.
--- NOTE | 2019-07-18 10:57 | NUR ---
PATIENT DISCHARGED TO HOME.
== END 2019-07-18 10:57 | disposition home or self-care (01) | DRG 189 ==
LOC: ED 19:58 → 5E 22:43 → EDHOLD 22:43 → 5E 23:28
PROVIDERS: Emergency Medicine; ADMIT Internal Medicine
DX: J96.01 Acute respiratory failure with hypoxia (principal); J44.1 Chronic obstructive pulmonary disease with (acute) exacerbation; F33.9 Major depressive disorder, recurrent, unspecified; I10 Essential (primary) hypertension; F41.1 Generalized anxiety disorder; R07.89 Other chest pain; Z91.048 Other nonmedicinal substance allergy status; Z79.899 Other long term (current) drug therapy; Z98.51 Tubal ligation status; Z98.41 Cataract extraction status, right eye; Z87.891 Personal history of nicotine dependence

== ENCOUNTER → 2020-07-10 | Outpatient (CLI) | payer MEDICARE ==
[~2020-07-10] MED LIST changes: +PREDNISONE2.5 MG PO
[2020-07-10 09:17] LABS: BASO # 0.1 10*3/uL (0.0-0.1); BASO % 0.8 % (0.0-1.0); EOS # 0.2 10*3/uL (0.0-0.4); EOS % 2.6 % (1.0-4.0); HEMATOCRIT 43.6 % (37.0-47.0); LYMPH # 2.4 10*3/uL (1.3-4.4); LYMPH % 26.5 % (27.0-41.0); MEAN CELL VOLUME 84.5 fl (81.0-99.0); MEAN CORPUSCULAR HGB 25.2 pg (27.0-31.0); MEAN CORPUSCULAR HGB CONC 29.8 g/dl (33.0-37.0); MEAN PLATELET VOLUME 10.4 fl (9.6-12.3); MONO # 1.1 10*3/uL (0.1-1.0); MONO % 11.4 % (3.0-9.0); NEUT # 5.3 10*3/uL (2.3-7.9); NEUT % 57.8 % (47.0-73.0); PLATELET COUNT AUTOMATED 318 10*3/uL (130-400); RED BLOOD COUNT 5.16 10*6/uL (4.10-5.10); RED CELL DISTRI WIDTH 15.8 % (0-14.5); WHITE BLOOD COUNT 9.2 10*3/uL (4.8-10.8)
[2020-07-10 09:46] LABS: ALKALINE PHOSPHATASE 74 U/L (45-117); BUN 13 mg/dl (7-24); CHLORIDE 110 mmol/L (98-107); CHOLESTEROL 182 mg/dL (<200); CREATININE 0.74 mg/dL (0.55-1.02); POTASSIUM 3.9 mmol/L (3.5-5.1); SGOT/AST 10 IU/L (3-35); SGPT/ALT 17 U/L (12-78); SODIUM 144 mmol/L (136-145); TOTAL PROTEIN 6.4 gm/dL (6.4-8.2); TRIGLYCERIDES 105 mg/dl (<150); VLDL CHOLESTEROL 21 mg/dL (6-40)
[2020-07-10 09:52] LABS: HDL CHOLESTEROL 87 mg/dl (40-60); LDL CHOLESTEROL 74 mg/dL (9-159)
[2020-07-10 10:52] LABS: VITAMIN D, 25-HYDROXY 16.4 ng/mL (30-100)
== END | disposition home or self-care (01) ==
LOC: LAB 08:20
PROVIDERS: ATTEND Internal Medicine
DX: Z00.00 Encounter for general adult medical examination without abnormal findings (principal); I10 Essential (primary) hypertension; E78.2 Mixed hyperlipidemia; E55.9 Vitamin D deficiency, unspecified

== ENCOUNTER 2021-11-30 10:41 | Emergency (ER) | payer MEDICARE ==
[~2021-11-30] VITALS: Ht 147.3 cm; Wt 64.0 kg
[2021-11-30 11:03] VITALS: BP 150/76
[2021-11-30] MEDS ORDERED: LEXAPRO10 MG PO (11:28)
[2021-11-30 11:30] LABS: HEMATOCRIT 43.1 % (37.0-47.0); MEAN CELL VOLUME 84.3 fl (81.0-99.0); MEAN CORPUSCULAR HGB 26.6 pg (27.0-31.0); MEAN CORPUSCULAR HGB CONC 31.6 g/dl (33.0-37.0); MEAN PLATELET VOLUME 8.8 fl (9.6-12.3); PLATELET COUNT AUTOMATED 266 10*3/uL (130-400); RED BLOOD COUNT 5.11 10*6/uL (4.10-5.10); RED CELL DISTRI WIDTH 14.8 % (0-14.5); WHITE BLOOD COUNT 15.8 10*3/uL (4.8-10.8)
[2021-11-30 11:39] LABS: MANUAL DIFF REFLEX YES
[2021-11-30 11:40] LABS: INTERNATIONAL NORM RATIO 0.9 (2.0-3.5)
[2021-11-30 11:47] LABS: ALKALINE PHOSPHATASE 75 U/L (45-117); BUN 17 mg/dl (7-24); CHLORIDE 101 mmol/L (98-107); CREATININE 0.84 mg/dL (0.55-1.02); LIPASE 90 U/L (73-393); POTASSIUM 3.6 mmol/L (3.5-5.1); SGOT/AST 18 IU/L (3-35); SGPT/ALT 22 U/L (12-78); SODIUM 139 mmol/L (136-145); TOTAL PROTEIN 6.5 gm/dL (6.4-8.2)
[2021-11-30 11:52] LABS: PLATELET SUFFICIENCY NORMAL (NORMAL); TOTAL CELLS COUNTED 100 #CELLS
[2021-11-30 12:43] LABS: BILIRUBIN Negative (Negative); BLOOD Negative (Negative); CLARITY Cloudy (Clear); COLOR Yellow (Yellow); GLUCOSE Negative (Negative); KETONE 1+ (Negative); LEUKO ESTERASE 2+ (Negative); NITRITE Negative (Negative); PH 5.5 (4.5-8.0); UROBILINOGEN 0.2 E.U./dl (0.0-1.0)
[2021-11-30 12:56] LABS: BACTERIA 2+; EPITHELIAL CELLS 41-50; MUCOUS 1+
[2021-11-30] MEDS ORDERED: MACROBID100 M1 PO (14:14)
[2021-12-04] MEDS ORDERED: PREDNISONE5 MG PO (17:12)
[2021-12-04] MEDS ORDERED: METOPROLOL SUCC50 M1 PO (17:12)
[2021-12-04] MEDS ORDERED: MONTELUKAST SOD10 MG PO (17:13)
[2021-12-04] MEDS ORDERED: XANAX0.25 MG PO (17:13)
[2021-12-13] MEDS ORDERED: PREDNISONE5 MG PO (09:38)
[2021-12-13] MEDS ORDERED: TRINTELLIX20 MG PO (09:38)
[2021-12-13] MEDS ORDERED: PANTOPRAZOLE SO40 MG PO (09:38)
[2021-12-13] MEDS ORDERED: METOPROLOL SUCC25 M2 PO (09:38)
[2021-12-13] MEDS ORDERED: FUROSEMIDE40 MG PO (09:38)
[2021-12-13] MEDS ORDERED: DOCUSATE SOD100 MG PO (09:38)
== END 2021-11-30 14:29 | disposition home or self-care (01) ==
LOC: ED 10:41
PROVIDERS: Physician Assistant
DX: S60.212A Contusion of left wrist, initial encounter (principal); N39.0 Urinary tract infection, site not specified; J44.9 Chronic obstructive pulmonary disease, unspecified; Z88.1 Allergy status to other antibiotic agents; Z79.899 Other long term (current) drug therapy; Z98.51 Tubal ligation status; Z87.891 Personal history of nicotine dependence; W22.8XXA Striking against or struck by other objects, initial encounter; Y93.89 Activity, other specified; Y92.89 Other specified places as the place of occurrence of the external cause; Y99.8 Other external cause status

== ENCOUNTER 2022-02-15 07:37 | Inpatient (IN) | payer MEDICARE ==
[~2022-02-15] VITALS: Ht 149.9 cm; Wt 58.1 kg
[~2022-02-15 07:37] MED LIST changes: +DOCUSATE SOD100 MG PO; +FUROSEMIDE40 MG PO; +LEXAPRO10 MG PO; +MACROBID100 M1 PO; +METOPROLOL SUCC50 M1 PO; +PANTOPRAZOLE SO40 MG PO; +TRINTELLIX20 MG PO
[2022-02-15 07:44] VITALS: BP 166/87
[2022-02-15 08:22] VITALS: BP 137/66
[2022-02-15 08:57] LABS: BASO # 0.1 10*3/uL (0.0-0.1); BASO % 0.8 % (0.0-1.0); EOS # 0.2 10*3/uL (0.0-0.4); EOS % 1.3 % (1.0-4.0); LYMPH # 1.5 10*3/uL (1.3-4.4); LYMPH % 12.7 % (27.0-41.0); MEAN CELL VOLUME 87.4 fl (81.0-99.0); MEAN CORPUSCULAR HGB 26.7 pg (27.0-31.0); MEAN CORPUSCULAR HGB CONC 30.5 g/dl (33.0-37.0); MEAN PLATELET VOLUME 9.2 fl (9.6-12.3); MONO # 1.4 10*3/uL (0.1-1.0); MONO % 11.4 % (3.0-9.0); NEUT # 8.7 10*3/uL (2.3-7.9); NEUT % 72.7 % (47.0-73.0); PLATELET COUNT AUTOMATED 396 10*3/uL (130-400); RED BLOOD COUNT 4.69 10*6/uL (4.10-5.10); RED CELL DISTRI WIDTH 15.8 % (0-14.5)
[2022-02-15 09:09] LABS: ACT PARTIAL THROMBO TIME 22.8 SECONDS (20.0-32.1); INTERNATIONAL NORM RATIO 0.9 (2.0-3.5)
[2022-02-15 09:12] LABS: ALKALINE PHOSPHATASE 80 U/L (45-117); BUN 19 mg/dl (7-24); CHLORIDE 105 mmol/L (98-107); CREATININE 0.51 mg/dL (0.55-1.02); LIPASE 175 U/L (73-393); POTASSIUM 3.2 mmol/L (3.5-5.1); SGOT/AST 13 IU/L (3-35); SGPT/ALT 23 U/L (12-78); SODIUM 141 mmol/L (136-145); TOTAL PROTEIN 6.7 gm/dL (6.4-8.2)
[2022-02-15 12:30] VITALS: BP 122/77
[2022-02-15] MEDS ORDERED: POTASSIUM20 MEQ/16 PO (12:45)
[2022-02-15] MEDS ORDERED: HYDROCODONE-AC1 EACH PO (12:45)
[2022-02-15] MEDS ORDERED: DRONABINOL5 MG PO (12:47)
[2022-02-15] MEDS ORDERED: MIRTAZAPINE15 M1 PO (12:48)
[2022-02-15 15:12] VITALS: BP 159/57
[2022-02-15 15:15] VITALS: BP 125/71
[2022-02-15 20:00] VITALS: BP 133/74
[2022-02-16] VITALS: BP 132/68
[2022-02-16] MEDS ORDERED: Duragesic 50 M50 MCG TD (02:37)
[2022-02-16 08:00] VITALS: BP 110/72
[2022-02-16 10:37] LABS: BUN 16 mg/dl (7-24); CHLORIDE 105 mmol/L (98-107); CREATININE 0.71 mg/dL (0.55-1.02); POTASSIUM 3.3 mmol/L (3.5-5.1); SODIUM 140 mmol/L (136-145)
[2022-02-16 12:00] VITALS: BP 137/60
[2022-02-16 16:00] VITALS: BP 134/58
[2022-02-16 20:00] VITALS: BP 134/56
[2022-02-17] VITALS: BP 133/83
[2022-02-17 06:25] LABS: BUN 14 mg/dl (7-24); CHLORIDE 107 mmol/L (98-107); CREATININE 0.51 mg/dL (0.55-1.02); POTASSIUM 3.3 mmol/L (3.5-5.1); SODIUM 145 mmol/L (136-145)
[2022-02-17 08:00] VITALS: BP 142/75
[2022-02-17 12:00] VITALS: BP 153/70
[2022-02-17 16:00] VITALS: BP 133/70
[2022-02-17 20:00] VITALS: BP 153/79
[2022-02-18] VITALS: BP 147/86
[2022-02-18 07:01] LABS: BUN 14 mg/dl (7-24); CHLORIDE 105 mmol/L (98-107); POTASSIUM 4.2 mmol/L (3.5-5.1); SODIUM 142 mmol/L (136-145)
[2022-02-18 07:02] LABS: CREATININE 0.55 mg/dL (0.55-1.02)
[2022-02-18 08:00] VITALS: BP 135/93
[2022-02-18 12:00] VITALS: BP 115/93
[2022-02-18 16:00] VITALS: BP 115/68
[2022-02-18 20:00] VITALS: BP 108/61
[2022-02-19] VITALS: BP 132/88
[2022-02-19 07:34] LABS: BUN 18 mg/dl (7-24); CHLORIDE 105 mmol/L (98-107); CREATININE 0.66 mg/dL (0.55-1.02); POTASSIUM 4.1 mmol/L (3.5-5.1); SODIUM 140 mmol/L (136-145)
[2022-02-19 08:00] VITALS: BP 136/83
[2022-02-19 08:36] LABS: BASO # 0.1 10*3/uL (0.0-0.1); BASO % 0.6 % (0.0-1.0); EOS # 0.2 10*3/uL (0.0-0.4); EOS % 2.4 % (1.0-4.0); HEMATOCRIT 39.9 % (37.0-47.0); LYMPH # 1.6 10*3/uL (1.3-4.4); LYMPH % 16.4 % (27.0-41.0); MEAN CELL VOLUME 88.3 fl (81.0-99.0); MEAN CORPUSCULAR HGB 26.3 pg (27.0-31.0); MEAN CORPUSCULAR HGB CONC 29.8 g/dl (33.0-37.0); MEAN PLATELET VOLUME 9.2 fl (9.6-12.3); MONO # 1.1 10*3/uL (0.1-1.0); MONO % 11.1 % (3.0-9.0); NEUT # 6.7 10*3/uL (2.3-7.9); NEUT % 68.9 % (47.0-73.0); PLATELET COUNT AUTOMATED 393 10*3/uL (130-400); RED BLOOD COUNT 4.52 10*6/uL (4.10-5.10); RED CELL DISTRI WIDTH 15.4 % (0-14.5); WHITE BLOOD COUNT 9.8 10*3/uL (4.8-10.8)
== END 2022-02-19 12:17 | DRG 184 ==
LOC: ED 07:37 → EDHOLD 10:21 → 5E 10:21 → EDHOLD 11:01 → 5E 11:09
PROVIDERS: Emergency Medicine; Internal Medicine; ADMIT Internal Medicine; ATTEND Internal Medicine
DX: S22.41XA Multiple fractures of ribs, right side, initial encounter for closed fracture (principal); J96.10 Chronic respiratory failure, unspecified whether with hypoxia or hypercapnia; E87.6 Hypokalemia; J44.9 Chronic obstructive pulmonary disease, unspecified; Z20.822 Contact with and (suspected) exposure to COVID-19; J45.909 Unspecified asthma, uncomplicated; F41.1 Generalized anxiety disorder; W18.39XA Other fall on same level, initial encounter; R53.81 Other malaise; G89.29 Other chronic pain; R62.7 Adult failure to thrive; I10 Essential (primary) hypertension; Z88.8 Allergy status to other drugs, medicaments and biological substances; Z99.81 Dependence on supplemental oxygen; Z98.51 Tubal ligation status; Z98.41 Cataract extraction status, right eye; Z87.891 Personal history of nicotine dependence; Z82.5 Family history of asthma and other chronic lower respiratory diseases; Y93.89 Activity, other specified; Y92.098 Other place in other non-institutional residence as the place of occurrence of the external cause; Y99.8 Other external cause status; Z68.25 Body mass index [BMI] 25.0-25.9, adult

== ENCOUNTER → 2022-03-04 | Outpatient (CLI) | payer MEDICARE ==
[~2022-03-04] MED LIST changes: +DRONABINOL5 MG PO; +Duragesic 50 M50 MCG TD; +HYDROCODONE-AC1 EACH PO; +MIRTAZAPINE15 M1 PO; +POTASSIUM20 MEQ/16 PO
== END | disposition home or self-care (01) ==
LOC: CT 08:00
PROVIDERS: ATTEND Internal Medicine
DX: I67.82 Cerebral ischemia (principal); I65.23 Occlusion and stenosis of bilateral carotid arteries; R90.82 White matter disease, unspecified

== ENCOUNTER 2022-03-27 07:16 | Emergency (ER) | payer MEDICARE ==
[~2022-03-27] VITALS: Wt 55.3 kg
[~2022-03-27 07:16] MED LIST changes: +BUSPAR15 MG PO; +HYDROCODONE-AC1 EAC1 PO; +KLONOPIN0.5 MG PO; +MIRTAZAPINE30 M2 PO; +POTASSIUM CHLO20 ME4 PO; +RIVASTIGMINE T1.5 M1 PO; +VITAMIN B-12100 MCG PO; +[UNRECOGNIZED DRUG - OTHER] PO
[2022-03-27 07:42] VITALS: BP 129/64
[2022-03-27 08:11] LABS: ACT PARTIAL THROMBO TIME 27.1 SECONDS (20.0-32.1)
[2022-03-27] MEDS ORDERED: BACITRACIN28.4 GM T (09:35)
== END 2022-03-27 09:44 | disposition home or self-care (01) ==
LOC: ED 07:16
PROVIDERS: Family Medicine
DX: S81.011A Laceration without foreign body, right knee, initial encounter (principal); S09.90XA Unspecified injury of head, initial encounter; F03.90 Unspecified dementia, unspecified severity, without behavioral disturbance, psychotic disturbance, mood disturbance, and anxiety; F41.9 Anxiety disorder, unspecified; J44.9 Chronic obstructive pulmonary disease, unspecified; Z91.048 Other nonmedicinal substance allergy status; Z88.8 Allergy status to other drugs, medicaments and biological substances; Z79.899 Other long term (current) drug therapy; Z98.890 Other specified postprocedural states; Z98.51 Tubal ligation status; Z87.891 Personal history of nicotine dependence; W19.XXXA Unspecified fall, initial encounter; Y93.89 Activity, other specified; Y92.128 Other place in nursing home as the place of occurrence of the external cause; Y99.8 Other external cause status

== ENCOUNTER 2022-03-27 20:10 | Emergency (ER) | payer MEDICARE ==
[~2022-03-27] VITALS: Ht 167.6 cm; Wt 63.5 kg
[~2022-03-27 20:10] MED LIST changes: +BACITRACIN28.4 GM T
[2022-03-27 20:38] LABS: HEMATOCRIT 38.7 % (37.0-47.0); MEAN CELL VOLUME 86.4 fl (81.0-99.0); MEAN CORPUSCULAR HGB 26.3 pg (27.0-31.0); MEAN CORPUSCULAR HGB CONC 30.5 g/dl (33.0-37.0); MEAN PLATELET VOLUME 9.5 fl (9.6-12.3); PLATELET COUNT AUTOMATED 329 10*3/uL (130-400); RED BLOOD COUNT 4.48 10*6/uL (4.10-5.10); RED CELL DISTRI WIDTH 14.7 % (0-14.5); WHITE BLOOD COUNT 10.1 10*3/uL (4.8-10.8)
[2022-03-27 20:57] LABS: MANUAL DIFF REFLEX YES
[2022-03-27 21:09] LABS: ATYPICAL LYMPHS 1 % (0-0); BASOPHILS 1 % (0-1); PLATELET SUFFICIENCY NORMAL (NORMAL); STOMATOCYTE MODERATE; TOTAL CELLS COUNTED 100 #CELLS
[2022-03-27 21:10] LABS: POLYCHROMASIA SLIGHT
[2022-03-27 21:11] LABS: ALKALINE PHOSPHATASE 77 U/L (45-117); BUN 11 mg/dl (7-24); CHLORIDE 95 mmol/L (98-107); CREATININE 0.78 mg/dL (0.55-1.02); SGPT/ALT 18 U/L (12-78); SODIUM 138 mmol/L (136-145)
[2022-03-27 23:30] VITALS: BP 116/62
== END 2022-03-27 23:45 ==
LOC: ED 20:10
PROVIDERS: Internal Medicine
DX: E87.29 Other acidosis (principal); F41.9 Anxiety disorder, unspecified; E87.6 Hypokalemia; E44.0 Moderate protein-calorie malnutrition; Z88.1 Allergy status to other antibiotic agents; Z79.899 Other long term (current) drug therapy; Z98.51 Tubal ligation status; Z87.891 Personal history of nicotine dependence